=== PATIENT | female | born 1985 | race Caucasian/White ===

== ENCOUNTER 2022-06-07 09:13 | Emergency (ER) | payer MEDICAID, SELFPAY ==
[2022-06-07 09:16] VITALS: BP 126/56; PULSE 80; TEMP 36.9; O2SAT 98; BMI 29.0
--- NOTE | 2022-06-07 09:25 | ED_ITS ---
HPI - Ear Problem General Time Seen by Provider: 09:26 Date Seen: 06/07/22 Chief complaint: Ear/Nose/Throat Problem Stated complaint: RT ear hearing issues Time Seen by Provider: 06/07/22 09:16 Source: patient and RN notes reviewed Mode of arrival: ambulatory Limitations: no limitations History of Present Illness HPI Narrative: Mildly is a 37-year-old female coming in with increased sensitivity to hearing of low decibel noises. She states since yesterday sometime she has noticed that low tones like the refrigerator runny nose or cars Rebecca are much more sensit lauren to her, she is hearing number louder. She thinks her right ear is more affected than her left but does feel that both ears are. About 3 days ago she and her family had a quick stomach flu with gastrointestinal symptoms. It resolved within 24 hours for all of them. She otherwise has not had any other illness. There is no trauma. She is concerned as she is supposed to be leaving for [place] in a few hours. There is no pain in her ears. There is no tinnitus. There is no noted hearing loss, opposite of this were she actually is more sensitive in hearing lower tones actually louder. Related Data Previous Rx's Medication Instructions Recorded prednisone 20 mg tablet 20 mg PO BID #14 tabs 06/07/22 Allergies Allergy/AdvReac Type Severity Reaction Status Date / Time Sulfa (Sulfonamide Allergy Unknown Verified 06/07/22 09:20 Antibiotics) Review of Systems Status of ROS: Reports: 6 or more systems reviewed and unremarkable except as noted in History and below PFSH PFSH Social History Smoking Status: Never smoker Do you use any of these nicotine containing products: None Second hand tobacco smoke exposure: No How often do you have a drink containing alcohol: 2-3 times a week How many standard drinks containing alcohol do you have on a typical day: 1 or 2 How often do you have six or more drinks on one occasion: Never AUDIT-C Alcohol total score: 3 Non-prescribed substance use: denies use Exam Const: Vital Signs, click to edit/add: Vital Signs - 24 hr 06/07/22 09:16 Temperature 98.4 F Pulse Rate [Left P ulse Oximeter] 80 Blood Pressure [Le ft Upper Arm] 126/56 L Pulse Oximetry 98 Oxygen Delivery Me thod Room Air 37-year-old female ambulatory in the ED of her own accord, normal gait, speech is normal. Documenting provider has reviewed patient's vital signs: yes Common normals: no apparent distress, average body habitus, oriented x3, no limitations, healthy appearing and alert General appearance: cooperative and comfortable HENMT: Common normals: normocephalic, head/scalp atraumatic, hearing grossly normal bilaterally, external ears normal, EAC's normal, TM's normal bilaterally, external nose normal, nasal mucous membranes and turbinates normal, moist oral mucous membranes, oropharynx normal, dentition normal and gingiva normal Head and scalp: normocephalic and atraumatic Nose: external nose normal and nasal mucous membranes and turbinates normal External ear: external ears normal External auditory canal: EAC's normal Tympanic membrane: TM's normal bilaterally Eye: Common normals: PERRL, EOMs intact bilaterally, conjunctivae normal and no scleral icterus Conjunctiva: conjunctiva(e) normal Pupil: PERRL Neck & C-Spine: Common normals: full ROM, no lymphadenopathy and supple Neuro: Common normals: oriented x3 Sensorium/orientation: alert Course Consultations Consultation #1: Did discuss over the phone briefly with Dr. Cheek in he did recommend course of steroids and ENT followup next week. I did do brief search on hyperacusis as well, reviewed with patient that it can be associated with migraines, viral illness, vitamin B6 deficiency is something I saw as well. It will be important for her to have ENT follow-up and an audiogram. Vital Signs Vital signs: Initial Vital Signs Temperature 98.4 F 06/07/22 09:16 Temperature Source Temporal Artery Scan 06/07/22 09:16 Pulse Rate 80 06/07/22 09:16 Blood Pressure 126/56 L 06/07/22 09:16 Blood Pressure Mean 79 06/07/22 09:16 Blood Pressure Position Sitting 06/07/22 09:16 Pulse Oximetry 98 06/07/22 09:16 Oxygen Delivery Method 06/07/22 09:16 Vital Signs Temperature 98.4 F 06/07/22 09:16 Pulse Rate 80 06/07/22 09:16 Blood Pressure 126/56 L 06/07/22 09:16 Pulse Oximetry 98 06/07/22 09:16 Oxygen Delivery Method 06/07/22 09:16 Temperature 98.4 F 06/07/22 09:16 Pulse Rate 80 06/07/22 09:16 Blood Pressure 126/56 L 06/07/22 09:16 Pulse Oximetry 98 06/07/22 09:16 Oxygen Delivery Method 06/07/22 09:16 Discharge Plan 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 Need to schedule a clinic followup with ENT next week as well as Audiology. Call the clinic at [phone] to get this scheduled. Let them know that I have spoken with Dr. Cheek whom is the ENT that you will see. I do not have a handout on hyperacusis but information can be found on the web. Activity Level: Activity as Tolerated Prescriptions: New prednisone 20 mg tablet 20 mg PO BID Qty: 14 0RF Follow Up/Referrals: Mushtaq Zhang MD [Primary Care Provider] - Stand Alone Forms: [employer] Info Instructions
== END 2022-06-07 09:48 | disposition home or self-care (01) ==
PROVIDERS: Emergency Provider Family Medicine; PCP Family Medicine
DX: H93.233 Hyperacusis, bilateral (principal)
CPT/HCPCS: 99282; 99284

== ENCOUNTER 2023-05-07 14:20 | Outpatient (CLI) | payer MEDICAID, SELFPAY ==
[2023-05-07 18:05] LABS: Chlamydia DNA Amplified* NOT DETECTED (No Detected); GC DNA Amplified* NOT DETECTED (No Detected)
== END 2023-05-07 14:21 | disposition home or self-care (01) ==
PROVIDERS: PCP Family Medicine; Visit Provider Registered Nurse
DX: Z11.3 Encounter for screening for infections with a predominantly sexual mode of transmission (principal)
CPT/HCPCS: 84443; 87491; 87591

== ENCOUNTER 2023-05-13 08:56 | Outpatient (CLI) | payer MEDICAID, SELFPAY ==
--- NOTE | 2023-05-13 09:15 | CRLHL7_ITS ---
For Patients: As a result of the Century Cures Act, medical imaging exams and procedure reports are released immediately into your electronic medical record. You may view this report before your referring provider. If you have questions, please contact your health care provider. INDICATION: heavy/frequent cycles COMPARISON: none TECHNIQUE: 2D wei scale and color Doppler images were acquired of the pelvis using a transabdominal and transvaginal approach. FINDINGS: Sonographic images demonstrate a normal size and smooth outer contour of the uterus. Uterus measures 8.8 cm in length by 4.3 cm in AP diameter by 5.4 cm in transverse dimension. The myometrium has a normal uniform echotexture. The endometrial lining measures 9 mm in composite thickness. The right ovary measures 2.8 x 1.6 x 2.9 cm in size and the left ovary measures 2.8 x 1.8 x 1.7 cm. Hypoechoic cyst right ovary measuring 1.6 x 0.9 x 1.5 cm. The ovaries demonstrate normal arterial and venous blood flow on color Doppler analysis. There are no suspicious fluid collections within the cul-de-sac. IMPRESSION: Endometrial thickness 9 millimeters. No uterine fibroid. Incidental hemorrhagic right ovarian cyst measuring 1.6 cm. Dictated by Femi Hills MD @ 05/13/2023 10:14:08 AM (Electronically Signed)
--- NOTE | 2023-05-13 10:45 | CRLHL7_ITS ---
For Patients: As a result of the Century Cures Act, medical imaging exams and procedure reports are released immediately into your electronic medical record. You may view this report before your referring provider. If you have questions, please contact your health care provider. BILATERAL SCREENING MAMMOGRAM WITH COMPUTER-AIDED DETECTION AND TOMOSYNTHESIS TECHNIQUE: CC and MLO views were obtained. These mammographic images have been obtained using full-field digital technique. These mammographic images were interpreted with the benefit of computer-aided detection. Breast Tomosynthesis was used in this interpretation. COMPARISON FILM: 12/02/20. FINDINGS: There are scattered areas of fibroglandular density IMPRESSION: There is no radiographic evidence for malignancy. ASSESSMENT: BI-RADS Category 1: Negative RECOMMENDATION: Routine screening mammogram in 1 year. A lay language report of this examination will be provided to the patient. Femi Hills M.D. Diagnostic Radiologist [email or web address] Transcribed: 2:55 pm DW/Dictated by: Femi Hills MD @ 05/14/2023 9:12:00 AM (Electronically Signed)
== END 2023-05-13 08:57 | disposition home or self-care (01) ==
PROVIDERS: PCP Family Medicine; Visit Provider Registered Nurse
DX: N92.0 Excessive and frequent menstruation with regular cycle (principal); R93.89 Abnormal findings on diagnostic imaging of other specified body structures; N83.201 Unspecified ovarian cyst, right side; Z12.31 Encounter for screening mammogram for malignant neoplasm of breast
CPT/HCPCS: 76830; 76856; 77063; 77067; 80061

== ENCOUNTER 2024-06-15 08:51 | Outpatient (CLI) | payer MEDICAID, SELFPAY | END 2024-06-15 08:52 | disposition home or self-care (01) | LOC: NFLDREF 06-16 16:01 | PROVIDERS: PCP Family Medicine; Referring Provider Family Medicine; Visit Provider Registered Nurse | DX: Z01.419 Encounter for gynecological examination (general) (routine) without abnormal findings (principal); Z13.1 Encounter for screening for diabetes mellitus; Z13.6 Encounter for screening for cardiovascular disorders | CPT/HCPCS: 80061; 82947 ==

== ENCOUNTER 2024-07-31 14:37 | Outpatient (CLI) | payer MEDICAID, SELFPAY ==
--- NOTE | 2024-07-31 14:40 | CRLHL7_ITS ---
For Patients: As a result of the Century Cures Act, medical imaging exams and procedure reports are released immediately into your electronic medical record. You may view this report before your referring provider. If you have questions, please contact your health care provider. BILATERAL SCREENING MAMMOGRAM WITH COMPUTER-AIDED DETECTION AND TOMOSYNTHESIS TECHNIQUE: CC and MLO views were obtained. These mammographic images have been obtained using full-field digital technique. These mammographic images were interpreted with the benefit of computer-aided detection. Breast Tomosynthesis was used in this interpretation. COMPARISON FILM: 05/13/23, 12/02/20. FINDINGS: There are scattered areas of fibroglandular density. IMPRESSION: There is no radiographic evidence for malignancy. ASSESSMENT: BI-RADS Category 1: Negative RECOMMENDATION: Routine screening mammogram in 1 year. A lay language report of this examination will be provided to the patient. Femi Hills M.D. Diagnostic Radiologist [email or web address] SP/Dictated by: Femi Hills MD @ 08/03/2024 9:25:00 AM (Electronically Signed)
== END 2024-07-31 14:38 | disposition home or self-care (01) ==
LOC: MAMMO 14:37
PROVIDERS: PCP Family Medicine; Visit Provider Registered Nurse
DX: Z12.31 Encounter for screening mammogram for malignant neoplasm of breast (principal)
CPT/HCPCS: 77063; 77067

== ENCOUNTER 2025-06-17 10:18 | Outpatient (CLI) | payer MEDICAID, SELFPAY | END 2025-06-17 10:19 | disposition home or self-care (01) | PROVIDERS: PCP Family Medicine; Visit Provider Registered Nurse | DX: N85.2 Hypertrophy of uterus (principal); N92.0 Excessive and frequent menstruation with regular cycle; Z13.6 Encounter for screening for cardiovascular disorders | CPT/HCPCS: 80061; 84443; 84702 ==

== ENCOUNTER 2025-07-06 12:51 | Outpatient (CLI) | payer MEDICAID, SELFPAY ==
--- NOTE | 2025-07-06 13:00 | CRLHL7_ITS ---
For Patients: As a result of the Century Cures Act, medical imaging exams and procedure reports are released immediately into your electronic medical record. You may view this report before your referring provider. If you have questions, please contact your health care provider. INDICATION: Excessive and frequent menstruation COMPARISON: 05/13/2023 TECHNIQUE: 2D wei-scale and color Doppler images were acquired of the pelvis using a transabdominal and transvaginal approach. Transvaginal imaging performed to better visualize the endometrial stripe and ovaries. FINDINGS: Sonographic images demonstrate a normal size and smooth outer contour of the uterus. Uterus measures 9.8 cm in length by 4.3 cm in AP diameter by 5.6 cm in transverse dimension. The myometrium has a normal uniform echotexture. The endometrial lining measures 12 mm in composite thickness. The right ovary measures 3.8 x 1.6 x 2.0 cm in size and the left ovary measures 3.2 x 1.9 x 2.6 cm. The ovaries demonstrate normal arterial and venous blood flow on color Doppler analysis. There are no suspicious fluid collections within the cul-de-sac. Left ovarian cyst measures 1.7 cm. IMPRESSION: Endometrial thickness 12 millimeters. No endometrial fluid. No uterine fibroid. Dictated by Femi Hills MD @ 07/06/2025 3:10:49 PM (Electronically Signed)
== END 2025-07-06 12:52 | disposition home or self-care (01) ==
LOC: US 12:51
PROVIDERS: PCP Family Medicine; Visit Provider Registered Nurse
DX: N92.0 Excessive and frequent menstruation with regular cycle (principal); R93.89 Abnormal findings on diagnostic imaging of other specified body structures; N85.2 Hypertrophy of uterus
CPT/HCPCS: 76830; 76856